=== PATIENT | female | born 1990 | race Two or more races ===

== ENCOUNTER 2017-03-29 20:17 | Emergency (ER) | payer OTHER, MEDICAID ==
[2017-03-29] MEDS ORDERED: PREDNISONE 20 MG TABLET ONE (21:25)
[2017-03-29] MEDS ORDERED: ALBUTEROL/IPRATROPIUM 2.5/0.5 MG 3 ML/EACH DOSE ONE (21:25)
== END 2017-03-29 21:50 | disposition home or self-care (01) ==
LOC: ED 20:17
DX: J45.901 Unspecified asthma with (acute) exacerbation (principal)
CPT/HCPCS: 99282; 99283; J7512